=== PATIENT | male | born 1995 | race Caucasian/White ===

== ENCOUNTER 2017-09-26 19:44 | Emergency (ER) | payer SELFPAY ==
[2017-09-26] MEDS ORDERED: ACETAMINOPHEN 325 MG TABLET (FP) PO ONE (19:57)
--- NOTE | 2017-09-26 19:57 | PDOC ---
Rapid Medical Evaluation Time Seen by Provider: 09/26/17 19:54 Medical Evaluation: I have performed a brief in-person evaluation of this patient. The patient presents with a chief complaint of: fever today; came from [facility] and [facility] yesterday Pertinent physical exam findings: 2+ erythematous tonsils I have ordered the following: influenza, rapid strep, motrin The patient will proceed to the ED for further evaluation.
[2017-09-26] MEDS ORDERED: IBUPROFEN 100 MG/5 ML UNIT DOSE CUPS PO ONE (20:00)
[2017-09-26 20:08] VITALS: BP 113/71; PULSE 118; BMI 31.6
[2017-09-26 23:03] VITALS: TEMP 97.2
[2017-09-26] MEDS ORDERED: SODIUM CHLORIDE 0.9% 1000 ML INFUS.BAG IV ONE (23:04)
--- NOTE | 2017-09-26 23:07 | PDOC ---
History of Present Illness - General Chief Complaint: Cold Symptoms Stated Complaint: FEVER Time Seen by Provider: 09/26/17 19:54 - History of Present Illness Initial Comments: 09/26/17 23:01 CHIEF COMPLAINT: fever, throat pain HISTORY OF PRESENT ILLNESS: 22 yo M with no PMH presents to ED with headache, fever, chills, and throat pain since today. 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 He denies any cough, runny nose, abdominal pain, vomiting, or diarrhea. Patient reports he is still tolerating food and fluids. PAST MEDICAL HISTORY: Denies past medical history FAMILY HISTORY: Denies SOCIAL HISTORY: Denies tobacco, alcohol, illicit drug use. SURGICAL HISTORY: Denies ALLERGIES: No known drug allergies REVIEW OF SYSTEMS General/Constitutional: Fever and chills since today. Denies weakness. HEENT: Sore throat. Denies change in vision. Denies ear pain or discharge. Cardiovascular: Denies chest pain or shortness of breath. Respiratory: Denies cough, wheezing, or hemoptysis. Gastrointestinal: Denies nausea, vomiting, diarrhea or constipation. Denies rectal bleeding. Genitourinary: Denies dysuria, frequency, or change in urination. Musculoskeletal: Denies joint or muscle swelling or pain. Denies neck or back pain. Skin and breasts: Denies rash or easy bruising. Neurologic: Headache since today. vertigo, loss of consciousness, or loss of sensation. PHYSICAL EXAM General Appearance: Well-appearing, appropriately dressed. No apparent distress. HEENT: 2+ erythematous tonsils. EOMI, PERRLA, normal ENT inspection, normal voice, TMs normal, pharynx normal. No conjunctival pallor. No photophobia, scleral icterus. Neck: Supple. Trachea midline. No tenderness, rigidity, carotid bruit, stridor , lymphadenopathy, or thyromegaly. Respiratory/Chest: Lungs CTAB. Cardiovascular: RRR. S1, S2. Gastrointestinal/Abdominal: Normal bowel sounds. Abdomen soft, non-distended. No tenderness or rebound tenderness. No organomegaly, pulsatile mass, guarding , hernia, hepatomegaly, splenomegaly. Musculoskeletal/Extremities: Normal inspection. FROM of all extremities, normal capillary refill. Pelvis Stable. No CVA tenderness. No tenderness to extremities, pedal edema, swelling, erythema or deformity. Integumentary: Appropriate color, dry, warm. No cyanosis, erythema, jaundice or rash Neurologic: locomotive electrician II-XII intact. Fully oriented, alert. Appropriate mood/affect. Motor strength 5/5. No appreciable EOM palsy, facial droop or sensory deficit. Possible Cause: Yes: allergen exposure Past History - Past Medical History Allergies/Adverse Reactions: Allergies Allergy/AdvReac Type Severity Reaction Status Date / Time Sulfa (Sulfonamide Allergy Verified 09/26/17 19:55 Antibiotics) Home Medications: Ambulatory Orders Acetaminophen [Pain Relief] 650 mg PO QID PRN 09/26/17 Acetaminophen [Tylenol -] 500 mg PO Q6H #40 tablet 09/26/17 Amoxicillin/Potassium Clav [Augmentin 875-125 Tablet] 1 each PO BID #14 tablet 09/26/17 Ibuprofen [Motrin -] 600 mg PO QID PRN #28 tablet 09/26/17 COPD: No - Suicide/Smoking/Psychosocial Hx Smoking History: Never smoked *Physical Exam - Vital Signs Last Vital Signs Temp Pulse Resp BP Pulse Ox 102.8 F H 118 H 18 113/71 98 09/26/17 20:06 09/26/17 20:06 09/26/17 20:06 09/26/17 20:06 09/26/17 20:06 ED Treatment Course - ADDITIONAL ORDERS Additional order review: 09/26/17 20:00 Influenza Types A,B Antigen (ARLEEN) - Final Nasopharyngeal Swab - Final 09/26/17 20:06 Group A Strep Rapid Antigen - Final Throat - Medications Given in the ED: ED Medications Discontinued Medications Generic Name Dose Route Start Last Admin Trade Name Freq PRN Reason Stop Dose Admin Acetaminophen 975 mg 09/26/17 19:57 09/26/17 20:09 Tylenol - PO 09/26/17 19:58 Not Given ONCE ONE Ibuprofen 600 mg 09/26/17 20:00 09/26/17 20:09 Motrin Oral Suspension - PO 09/26/17 20:01 600 mg ONCE ONE Administration Medical Decision Making - Medical Decision Making 09/26/17 23:08 22 yo M with no PMH presents to ED with headache, fever, chills, and throat pain since today. -flu, strep swabs -motrin, tylenol repeat temp 97.2F. Patient is uncomfortable appearing and diaphoretic, will give Augmentin and IVF. 09/26/17 23:12 Will discharge with Augmentin rx. *DC/Admit/Observation/Transfer Diagnosis at time of Disposition: Pharyngitis Qualifiers: Pharyngitis/tonsillitis etiology: unspecified etiology Qualified Code(s): J02.9 - Acute pharyngitis, unspecified - Discharge Dispostion Disposition: HOME Condition at time of disposition: Stable Admit: No - Prescriptions Prescriptions: Acetaminophen [Tylenol -] 500 mg PO Q6H #40 tablet Amoxicillin/Potassium Clav [Augmentin 875-125 Tablet] 1 each PO BID #14 tablet Ibuprofen [Motrin -] 600 mg PO QID PRN #28 tablet PRN Reason: Fever - Referrals - Patient Instructions Printed Discharge Instructions: DI for Pharyngitis/Tonsillopharyngitis -- Adult Additional Instructions: Por favor tome los medicamentos segn lo recetado; complete todos los antibi ticos, incluso si alcey sntomas mejoran. Si desarrolla fiebre que no se brennan con Motrin (ibuprofeno) o Tylenol (paracetamol/acetaminophen), o presenta v mitos, diarrea o cualquier sntoma nuevo o que empeora, regrese a la pilar de urgencias. Print Language: HONDURAN - Post Discharge Activity
[2017-09-26] MEDS ORDERED: AMOX TR/POT CLAV 875MG/125MG TABLETS (FP) PO ONE (23:08)
[2017-09-26] MEDS ORDERED: ACETAMINOPHEN 1000 MG/100 ML VIAL (NON FORMULARY) IVPB ONE (23:31)
[2017-09-26] MEDS ORDERED: ACETAMINOPHEN 325 MG TABLET (FP) ONE (23:35)
[2017-09-26] MEDS ORDERED: AMOX TR/POT CLAV 875MG/125MG TABLETS (FP) ONE (23:36)
== END 2017-09-27 00:30 | disposition home or self-care (01) ==
LOC: JER 19:44
PROC: 3E0337Z Introduction of Electrolytic and Water Balance Substance into Peripheral Vein, Percutaneous Approach (ICD-10-PCS; principal; 2017-09-26)
PROC: 3E033NZ Introduction of Analgesics, Hypnotics, Sedatives into Peripheral Vein, Percutaneous Approach (ICD-10-PCS; 2017-09-26)
DX: J02.9 Acute pharyngitis, unspecified (principal)
CPT/HCPCS: 87070; 87077; 87430; 87804; 99283-25